=== PATIENT | female | born 1950 | race Hispanic/Latino ===

== ENCOUNTER → 2019-06-03 | Outpatient (CLI) | payer OTHER, MEDICARE ==
[~2019-06-03] MED LIST: GADODIAMIDE 10 MMOL/20 ML VIAL IV ONE
== END | disposition home or self-care (01) ==
LOC: RAH 09:10
PROVIDERS: ATTEND Family Medicine
DX: I70.1 Atherosclerosis of renal artery (principal)
CPT/HCPCS: A9579; C8902

== ENCOUNTER 2023-09-25 06:22 | Day surgery (SDC) | payer OTHER, MEDICARE ==
[2023-09-25] VITALS (12 sets, daily range): BP systolic 121–156; BP diastolic 63–82; PULSE 55–71; RESP 14–20
[~2023-09-25] VITALS: Ht 170.2 cm; Wt 86.2 kg
[~2023-09-25 06:22] MED LIST changes: +AMLO-258 PO; +ASPI-1005 PO; +ATOR10 PO; -GADODIAMIDE 10 MMOL/20 ML VIAL IV ONE; +HYDR25TA PO; +LEVO75CA5 PO; +LOSA100T59 PO; +OMEP40CA21 PO; +UBID10CA6 PO
[2023-09-25] MEDS: 0.9%NACL 1000ML 1,000 ML IV ONE (07:01)
[2023-09-25] MEDS ORDERED: PROPOFOL 10 MG/ML 20ML VIAL IV ONE ×2 (08:16→08:17)
[2023-09-25] MEDS ORDERED: LIDOCAINE HCL 1% 20 ML VIAL ONE (08:17)
== END 2023-09-25 15:25 | disposition home or self-care (01) ==
LOC: ENDO 06:22 → DAH 06:22 → ENDO 15:25
PROVIDERS: ATTEND Internal Medicine Gastroenterology
DX: Z12.11 Encounter for screening for malignant neoplasm of colon (principal); D12.3 Benign neoplasm of transverse colon; D12.4 Benign neoplasm of descending colon; K20.80 Other esophagitis without bleeding; K29.50 Unspecified chronic gastritis without bleeding; B96.81 Helicobacter pylori [H. pylori] as the cause of diseases classified elsewhere; K44.9 Diaphragmatic hernia without obstruction or gangrene; K31.89 Other diseases of stomach and duodenum; R12 Heartburn; E78.5 Hyperlipidemia, unspecified; I11.9 Hypertensive heart disease without heart failure; J44.9 Chronic obstructive pulmonary disease, unspecified; K57.30 Diverticulosis of large intestine without perforation or abscess without bleeding; K64.9 Unspecified hemorrhoids; E03.9 Hypothyroidism, unspecified; I25.10 Atherosclerotic heart disease of native coronary artery without angina pectoris; K59.00 Constipation, unspecified; B17.10 Acute hepatitis C without hepatic coma; R94.5 Abnormal results of liver function studies; R77.2 Abnormality of alphafetoprotein; Z87.891 Personal history of nicotine dependence; Z83.3 Family history of diabetes mellitus; Z82.3 Family history of stroke; Z82.5 Family history of asthma and other chronic lower respiratory diseases; Z80.9 Family history of malignant neoplasm, unspecified; Z79.82 Long term (current) use of aspirin; Z79.890 Hormone replacement therapy; Z79.899 Other long term (current) drug therapy; Z95.5 Presence of coronary angioplasty implant and graft; Z72.89 Other problems related to lifestyle
CPT/HCPCS: 43239; 45380; 45385; J7030 ×2; J2704 ×2; A4620; A4215; A4223; A7002; A4222; A4221; A4663; A4606; J3490

== ENCOUNTER 2025-06-27 07:43 | Day surgery (SDC) | payer OTHER, MEDICARE ==
[2025-06-27] VITALS (10 sets, daily range): BP systolic 123–196; BP diastolic 68–87; PULSE 55–87; RESP 15–18; TEMP 97.3–98.1
[~2025-06-27] VITALS: Ht 170.2 cm; Wt 93.0 kg
[~2025-06-27 07:43] MED LIST changes: -LEVO75CA5 PO; +LEVO75CA6 PO
[2025-06-27] MEDS: 0.9%NACL 1000ML 1,000 ML IV ONE (10:11)
[2025-06-27] MEDS ORDERED: UMEC1DIS IH (10:16)
[2025-06-27] MEDS ORDERED: ALBU18HF7 IH (10:16)
[2025-06-27] MEDS ORDERED: CLOP-31 PO (10:19)
[2025-06-27] MEDS ORDERED: METO-408 PO (10:19)
[2025-06-27] MEDS ORDERED: PANT20TA18 PO (10:19)
--- NOTE | 2025-06-27 12:30 | NUR ---
BOTH PT AND SPOUSE GIVEN VERBAL AND WRITTEN DISCHARGE INSTRUCTIONS IV REMOVED SITE ASYMPTOMATIC. PT TAKEN OUT VIA WHEELCHAIR SPOUSE DRIVING
== END 2025-06-27 12:30 | disposition home or self-care (01) ==
LOC: DAH 07:43 → ENDO 07:43
PROVIDERS: ATTEND Internal Medicine Gastroenterology
DX: R19.5 Other fecal abnormalities (principal); D12.2 Benign neoplasm of ascending colon; K31.89 Other diseases of stomach and duodenum; K64.0 First degree hemorrhoids; J44.9 Chronic obstructive pulmonary disease, unspecified; I10 Essential (primary) hypertension; I25.10 Atherosclerotic heart disease of native coronary artery without angina pectoris; E78.5 Hyperlipidemia, unspecified; E03.9 Hypothyroidism, unspecified; B19.20 Unspecified viral hepatitis C without hepatic coma; K44.9 Diaphragmatic hernia without obstruction or gangrene; K59.00 Constipation, unspecified; K57.30 Diverticulosis of large intestine without perforation or abscess without bleeding; K64.9 Unspecified hemorrhoids; Z95.5 Presence of coronary angioplasty implant and graft; Z79.01 Long term (current) use of anticoagulants; Z79.899 Other long term (current) drug therapy
CPT/HCPCS: 45385; 43239; J7030; J2704; A4620; A4215; J3490